=== PATIENT | male | born 1975 | race Caucasian/White ===

== ENCOUNTER 2017-02-10 17:04 | Emergency (ER) | payer OTHER ==
[~2017-02-10] VITALS: Ht 175.3 cm; Wt 110.0 kg
[~2017-02-10 17:04] MED LIST: ALL DAY10 MG PO; AMITRIPTYLIN50 MG PO; FLONASE NASAL50 MCG; GABAPENTIN100 MG PO; GLIPIZIDE5 MG PO; HUMULIN 70/30 SC; LIORESAL10 MG/TA1 PO; METFORMIN500 MG PO; NAPROSYN500 MG PO; SUMATRIPTAN25 MG PO; TOPIRAMATE ER100 MG PO; ZESTRIL40 MG PO
[2017-02-10] MEDS ORDERED: HUMULIN 70/30 SC (17:09)
[2017-02-10] MEDS ORDERED: TRAZODONE100 MG PO (17:11)
[2017-02-10] MEDS ORDERED: PERCOCET 5/325M1 TAB PO (17:52)
[2017-02-10 17:59] VITALS: BP 126/74
== END 2017-02-10 18:06 | disposition home or self-care (01) | DRG 93 ==
LOC: ED 17:04
DX: G89.29 Other chronic pain (principal); M54.5 Low back pain

== ENCOUNTER 2017-02-13 11:08 | Emergency (ER) | payer OTHER ==
[~2017-02-13] VITALS: Ht 175.3 cm; Wt 111.0 kg
[~2017-02-13 11:08] MED LIST changes: +PERCOCET 5/325M1 TAB PO; +TRAZODONE100 MG PO
[2017-02-13] MEDS ORDERED: TRAMADOL HCL50 MG PO (11:32)
[2017-02-13] MEDS ORDERED: AMOXICILLIN500 MG PO (13:16)
[2017-02-13 13:21] VITALS: BP 110/73
== END 2017-02-13 13:21 | disposition home or self-care (01) | DRG 605 ==
LOC: ED 11:08
PROC: 0HQFXZZ Repair Right Hand Skin, External Approach (ICD-10-PCS; principal; 2017-02-13)
PROC: 2W3JX1Z Immobilization of Right Finger using Splint (ICD-10-PCS; 2017-02-13)
PROC: 2W3JX1Z Immobilization of Right Finger using Splint (ICD-10-PCS; 2017-02-13)
DX: S61.210A Laceration without foreign body of right index finger without damage to nail, initial encounter (principal); S61.212A Laceration without foreign body of right middle finger without damage to nail, initial encounter; W31.2XXA Contact with powered woodworking and forming machines, initial encounter; Y93.89 Activity, other specified; Y92.007 Garden or yard of unspecified non-institutional (private) residence as the place of occurrence of the external cause

== ENCOUNTER 2017-02-23 09:12 | Emergency (ER) | payer OTHER ==
[~2017-02-23] VITALS: Ht 175.3 cm; Wt 111.0 kg
[~2017-02-23 09:12] MED LIST changes: +AMOXICILLIN500 MG PO; +TRAMADOL HCL50 MG PO
[2017-02-23 09:16] VITALS: BP 167/88
== END 2017-02-23 09:55 | disposition home or self-care (01) | DRG 950 ==
LOC: ED 09:12
DX: S61.210D Laceration without foreign body of right index finger without damage to nail, subsequent encounter (principal); S61.212D Laceration without foreign body of right middle finger without damage to nail, subsequent encounter

== ENCOUNTER 2018-12-23 20:13 | Inpatient (IN) | payer OTHER ==
[~2018-12-23] VITALS: Ht 175.3 cm; Wt 100.0 kg
[2018-12-23] MEDS ORDERED: CYMBALTA60 MG PO (20:59)
[2018-12-23] MEDS ORDERED: PROTONIX40 M2 PO (21:00)
[2018-12-23] MEDS ORDERED: ASPIRIN325 MG PO (21:01)
[2018-12-23 21:03] LABS: HEMATOCRIT 42.1 % (39.0-50.0); HEMOGLOBIN 14.3 g/dl (14.0-18.0); IMMATURE GRANULOCYTES 0.5 % (0.0-5.0); MEAN CELL VOLUME 91.1 fL CALC (80.0-100.0); NEUT# 10.38 thou/uL (1.82-7.42); RED BLOOD COUNT 4.62 mill/uL (4.70-6.10); RED CELL DISTRI WIDTH 12.9 % (11.5-15.5)
[2018-12-23] MEDS ORDERED: ZESTRIL40 MG PO (21:06)
[2018-12-23] MEDS ORDERED: DICLOFENAC50 MG PO (21:07)
[2018-12-23] MEDS ORDERED: ALLERGY10 M1 PO (21:08)
[2018-12-23] MEDS ORDERED: B121000 MCG PO (21:10)
[2018-12-23] MEDS ORDERED: ANTI-DIARRHE2 M1 PO (21:11)
[2018-12-23] MEDS ORDERED: BISACODYL5 M2 PO (21:12)
[2018-12-23] MEDS ORDERED: NAPROXEN500 MG PO (21:13)
[2018-12-23] MEDS ORDERED: INSULIN ISOPHANE SC (21:15)
[2018-12-23 21:19] LABS: ALBUMIN 5.3 g/dL (3.2-5.0); ALKALINE PHOSPHATASE 67 u/l (38-126); BILIRUBIN, TOTAL 0.7 mg/dL (0.0-1.4); BUN 66 mg/dL (9-20); CHLORIDE 101 mmol/l (95-108); SGOT/AST 29 u/l (17-59); SODIUM 139 mmol/l (137-146); TOTAL PROTEIN 8.2 g/dL (6.3-8.2)
[2018-12-23 21:45] LABS: ANION GAP 27 (6-22 (CALC)); BUN/CREATININE RATIO 13 (12-20 (CALC)); CARBON DIOXIDE 17 mmol/l (22-30); GFR 12 ML/MIN (>=60 (CALC)); GFR FOR AFR.AMER. 15 ML/MIN (>=60 (CALC)); POTASSIUM 5.5 mmol/l (3.5-5.1)
[2018-12-23 21:46] LABS: CREATININE 5.2 mg/dL (0.7-1.3); MYOGLOBIN 961 ng/mL (0 - 121)
[2018-12-23 21:57] LABS: URINE BILIRUBIN - DIPSTICK MODERATE (NEGATIVE); URINE BLOOD DIPSTICK NEGATIVE (NEGATIVE); URINE COLOR YELLOW; URINE GLUCOSE - DIPSTICK 100 mg/dL (NEGATIVE); URINE KETONE 15 mg/dL (NEGATIVE); URINE LEUK ESTERASE NEGATIVE (NEGATIVE); URINE NITRITE - DIPSTICK NEGATIVE (Negative); URINE PROTEIN - DIPSTICK 100 mg/dL (NEG-TRACE); URINE SPECIFIC GRAVITY >=1.030; URINE UROBILINOGEN - DIPSTICK 0.2 E.U./dL (0.2)
[2018-12-23 22:05] LABS: URINE SQUAMOUS EPITHELIAL CELL FEW EPI/hpf (0-FEW)
[2018-12-24 07:00] VITALS: BP 97/56
[2018-12-24 09:00] VITALS: BP 107/59
[2018-12-24 10:41] LABS: HEMOGLOBIN 12.5 g/dl (14.0-18.0); IMMATURE GRANULOCYTES 0.4 % (0.0-5.0); MEAN CELL VOLUME 92.3 fL CALC (80.0-100.0); MEAN CORPUSCULAR HGB 31.2 pG CALC (26.0-32.0); MEAN CORPUSCULAR HGB CONC 33.8 g/L CALC (32.0-36.0); NEUT# 5.13 thou/uL (1.82-7.42); RED BLOOD COUNT 4.01 mill/uL (4.70-6.10); RED CELL DISTRI WIDTH 12.9 % (11.5-15.5)
[2018-12-24 11:00] VITALS: BP 115/65
[2018-12-24 11:33] LABS: BILIRUBIN, TOTAL 0.6 mg/dL (0.0-1.4); POTASSIUM 5.1 mmol/l (3.5-5.1)
[2018-12-24 11:58] LABS: CREATININE 2.5 mg/dL (0.7-1.3); TOTAL PROTEIN 6.3 g/dL (6.3-8.2)
[2018-12-24 14:00] VITALS: BP 101/52
[2018-12-24 19:10] VITALS: BP 97/48
[2018-12-25] VITALS: BP 102/59
[2018-12-25 04:00] VITALS: BP 119/78
[2018-12-25 05:34] LABS: ALBUMIN 3.6 g/dL (3.2-5.0); BUN 32 mg/dL (9-20); CARBON DIOXIDE 20 mmol/l (22-30); CHLORIDE 109 mmol/l (95-108); GFR 60 ML/MIN (>=60 (CALC)); POTASSIUM 4.5 mmol/l (3.5-5.1); SODIUM 138 mmol/l (137-146)
[2018-12-25 05:40] LABS: CREATININE 1.3 mg/dL (0.7-1.3); GFR FOR AFR.AMER. > 60 ML/MIN (>=60 (CALC))
[2018-12-25 07:41] VITALS: BP 103/65
[2018-12-25 12:05] VITALS: BP 117/76
== END 2018-12-25 15:13 | disposition home or self-care (01) | DRG 683 ==
LOC: ED 20:13 → ED-I 21:52 → ED 22:09 → ED-I 22:10 → MS2 22:10
PROVIDERS: Emergency Medicine; Internal Medicine Nephrology; ADMIT Internal Medicine; ATTEND Internal Medicine
DX: N17.9 Acute kidney failure, unspecified (principal); R57.9 Shock, unspecified; E86.0 Dehydration; I10 Essential (primary) hypertension; E11.65 Type 2 diabetes mellitus with hyperglycemia; E11.21 Type 2 diabetes mellitus with diabetic nephropathy; I95.9 Hypotension, unspecified; E78.5 Hyperlipidemia, unspecified; N40.0 Benign prostatic hyperplasia without lower urinary tract symptoms; F43.10 Post-traumatic stress disorder, unspecified; G89.29 Other chronic pain; N28.1 Cyst of kidney, acquired; T46.4X5A Adverse effect of angiotensin-converting-enzyme inhibitors, initial encounter; X30.XXXA Exposure to excessive natural heat, initial encounter; Y93.89 Activity, other specified; Z87.820 Personal history of traumatic brain injury

== ENCOUNTER 2019-01-03 13:04 | Observation (INO) | payer OTHER ==
[~2019-01-03] VITALS: Ht 175.3 cm; Wt 104.5 kg
[~2019-01-03 13:04] MED LIST changes: +ALLERGY10 M1 PO; +ANTI-DIARRHE2 M1 PO; +ASPIRIN325 MG PO; +B121000 MCG PO; +BISACODYL5 M2 PO; +CYMBALTA60 MG PO; +DICLOFENAC50 MG PO; +INSULIN ISOPHANE SC; +NAPROXEN500 MG PO; +PROTONIX40 M2 PO
[2019-01-03 14:01] LABS: HEMATOCRIT 40.2 % (39.0-50.0); HEMOGLOBIN 13.5 g/dl (14.0-18.0); IMMATURE GRANULOCYTES 0.6 % (0.0-5.0); MEAN CELL VOLUME 92.6 fL CALC (80.0-100.0); MEAN CORPUSCULAR HGB 31.1 pG CALC (26.0-32.0); MEAN CORPUSCULAR HGB CONC 33.6 g/L CALC (32.0-36.0); NEUT# 8.18 thou/uL (1.82-7.42); RED BLOOD COUNT 4.34 mill/uL (4.70-6.10); RED CELL DISTRI WIDTH 13.2 % (11.5-15.5)
[2019-01-03 14:16] LABS: ALKALINE PHOSPHATASE 62 u/l (38-126); BILIRUBIN, TOTAL 0.7 mg/dL (0.0-1.4); BUN 30 mg/dL (9-20); CARBON DIOXIDE 20 mmol/l (22-30); CHLORIDE 100 mmol/l (95-108); SODIUM 137 mmol/l (137-146)
[2019-01-03 14:22] LABS: ALBUMIN 5.1 g/dL (3.2-5.0); ANION GAP 22 (6-22 (CALC)); BUN/CREATININE RATIO 12 (12-20 (CALC)); CREATININE 2.6 mg/dL (0.7-1.3); GFR 27 ML/MIN (>=60 (CALC)); GFR FOR AFR.AMER. 32 ML/MIN (>=60 (CALC)); POTASSIUM 5.3 mmol/l (3.5-5.1); SGOT/AST 41 u/l (17-59)
[2019-01-03 14:28] LABS: MYOGLOBIN 236 ng/mL (0 - 121)
[2019-01-03] MEDS ORDERED: LISINOPRIL10 MG PO (18:57)
[2019-01-03] MEDS ORDERED: TYLENOL # 31 TA1 PO (19:05)
[2019-01-03 19:31] LABS: URINE BLOOD DIPSTICK NEGATIVE (NEGATIVE); URINE COLOR YELLOW; URINE GLUCOSE - DIPSTICK NEGATIVE (NEGATIVE); URINE KETONE 15 mg/dL (NEGATIVE); URINE LEUK ESTERASE NEGATIVE (NEGATIVE); URINE NITRITE - DIPSTICK NEGATIVE (Negative); URINE PROTEIN - DIPSTICK 30 mg/dL (NEG-TRACE); URINE SPECIFIC GRAVITY 1.025; URINE UROBILINOGEN - DIPSTICK 0.2 E.U./dL (0.2)
[2019-01-03 19:32] LABS: URINE BILIRUBIN - DIPSTICK NEGATIVE (NEGATIVE)
[2019-01-03 19:39] LABS: URINE CALCIUM OXALATE CRYSTALS FEW lpf; URINE MUCUS FEW hpf (NONE-FEW); URINE RBC 0-2 RBC/hpf (0-5)
[2019-01-03 19:50] LABS: BARBITURATES NEGATIVE (NEGATIVE); COCAINE NEGATIVE (NEGATIVE); METHADONE NEGATIVE (NEGATIVE); OXCYCODONE NEGATIVE (NEGATIVE); TETRAHYDROCANNABIONOL NEGATIVE (NEGATIVE); TRICYLIC ANTIDEPRESSANTS NEGATIVE (NEGATIVE)
[2019-01-03 21:55] VITALS: BP 112/57
[2019-01-04 01:25] VITALS: BP 98/56
[2019-01-04 04:30] VITALS: BP 117/42
[2019-01-04 05:04] LABS: HEMATOCRIT 35.3 % (39.0-50.0); HEMOGLOBIN 11.8 g/dl (14.0-18.0); IMMATURE GRANULOCYTES 0.4 % (0.0-5.0); MEAN CELL VOLUME 92.9 fL CALC (80.0-100.0); MEAN CORPUSCULAR HGB 31.1 pG CALC (26.0-32.0); MEAN CORPUSCULAR HGB CONC 33.4 g/L CALC (32.0-36.0); NEUT# 4.04 thou/uL (1.82-7.42); RED BLOOD COUNT 3.8 mill/uL (4.70-6.10); RED CELL DISTRI WIDTH 13.2 % (11.5-15.5)
[2019-01-04 05:16] LABS: BILIRUBIN, TOTAL 0.6 mg/dL (0.0-1.4); CREATININE 2.7 mg/dL (0.7-1.3); MAGNESIUM 1.6 mg/dL (1.6-2.3); POTASSIUM 4.7 mmol/l (3.5-5.1)
[2019-01-04 05:17] LABS: TOTAL PROTEIN 5.9 g/dL (6.3-8.2)
[2019-01-04 05:18] LABS: ALBUMIN 3.7 g/dL (3.2-5.0)
[2019-01-04 08:07] VITALS: BP 101/50
[2019-01-04 10:25] VITALS: BP 109/62
[2019-01-04 16:12] VITALS: BP 108/62
[2019-01-04 18:55] VITALS: BP 118/57
[2019-01-05 00:05] VITALS: BP 120/62
[2019-01-05 03:26] VITALS: BP 97/56
[2019-01-05 05:43] LABS: HEMATOCRIT 35.3 % (39.0-50.0); HEMOGLOBIN 11.8 g/dl (14.0-18.0); IMMATURE GRANULOCYTES 0.2 % (0.0-5.0); MEAN CELL VOLUME 92.2 fL CALC (80.0-100.0); MEAN CORPUSCULAR HGB 30.8 pG CALC (26.0-32.0); MEAN CORPUSCULAR HGB CONC 33.4 g/L CALC (32.0-36.0); NEUT# 4.48 thou/uL (1.82-7.42); RED BLOOD COUNT 3.83 mill/uL (4.70-6.10); RED CELL DISTRI WIDTH 13.1 % (11.5-15.5)
[2019-01-05 06:05] LABS: ALBUMIN 3.8 g/dL (3.2-5.0); ALKALINE PHOSPHATASE 51 u/l (38-126); AMYLASE 42 u/l (30-110); ANION GAP 12 (6-22 (CALC)); BILIRUBIN, TOTAL 0.5 mg/dL (0.0-1.4); BUN 21 mg/dL (9-20); CHLORIDE 106 mmol/l (95-108); LIPASE 65 u/l (23-300); MAGNESIUM 1.7 mg/dL (1.6-2.3); POTASSIUM 5.1 mmol/l (3.5-5.1); SGOT/AST 20 u/l (17-59); SODIUM 138 mmol/l (137-146); TOTAL PROTEIN 6.1 g/dL (6.3-8.2)
[2019-01-05 06:12] LABS: BUN/CREATININE RATIO 16 (12-20 (CALC)); CARBON DIOXIDE 25 mmol/l (22-30); CREATININE 1.3 mg/dL (0.7-1.3); GFR 60 ML/MIN (>=60 (CALC)); GFR FOR AFR.AMER. > 60 ML/MIN (>=60 (CALC))
[2019-01-05 08:03] VITALS: BP 123/64
[2019-01-05 11:19] VITALS: BP 110/67
[2019-01-05] MEDS ORDERED: KEFLEX500 MG PO (12:00)
== END 2019-01-05 13:54 | disposition home or self-care (01) | DRG 683 ==
LOC: ED 13:04 → ED-I 20:32 → ED 21:17 → MS2 21:18
PROVIDERS: Family Medicine; ADMIT Internal Medicine Nephrology; ATTEND Internal Medicine Nephrology
DX: N17.9 Acute kidney failure, unspecified (principal); E87.2 Acidosis; E86.0 Dehydration; E87.5 Hyperkalemia; T46.4X5A Adverse effect of angiotensin-converting-enzyme inhibitors, initial encounter; I12.9 Hypertensive chronic kidney disease with stage 1 through stage 4 chronic kidney disease, or unspecified chronic kidney disease; E11.22 Type 2 diabetes mellitus with diabetic chronic kidney disease; N18.3 Chronic kidney disease, stage 3 (moderate); E11.21 Type 2 diabetes mellitus with diabetic nephropathy; E11.40 Type 2 diabetes mellitus with diabetic neuropathy, unspecified; S80.212A Abrasion, left knee, initial encounter; T14.8XXA Other injury of unspecified body region, initial encounter; F43.10 Post-traumatic stress disorder, unspecified; G89.29 Other chronic pain; W11.XXXA Fall on and from ladder, initial encounter; Z87.820 Personal history of traumatic brain injury; Z79.4 Long term (current) use of insulin; Z72.89 Other problems related to lifestyle

== ENCOUNTER 2020-03-29 08:03 | Emergency (ER) | payer OTHER ==
[~2020-03-29] VITALS: Ht 175.3 cm; Wt 95.0 kg
[~2020-03-29 08:03] MED LIST changes: +KEFLEX500 MG PO; +LISINOPRIL10 MG PO; +TYLENOL # 31 TA1 PO
[2020-03-29 09:32] LABS: URINE BILIRUBIN - DIPSTICK NEGATIVE (NEGATIVE); URINE BLOOD DIPSTICK NEGATIVE (NEGATIVE); URINE COLOR YELLOW; URINE GLUCOSE - DIPSTICK >=1000 mg/dL (NEGATIVE); URINE KETONE NEGATIVE (NEGATIVE); URINE NITRITE - DIPSTICK NEGATIVE (Negative); URINE PH 7.5 (4.5-8.0); URINE PROTEIN - DIPSTICK NEGATIVE (NEG-TRACE); URINE SPECIFIC GRAVITY 1.015; URINE UROBILINOGEN - DIPSTICK 0.2 E.U./dL (0.2)
[2020-03-29 09:37] LABS: URINE LEUK ESTERASE NEGATIVE (NEGATIVE)
[2020-03-29 10:05] VITALS: BP 140/84
== END 2020-03-29 10:05 | disposition left against medical advice (07) | DRG 552 ==
LOC: ED 08:03
DX: M54.5 Low back pain (principal); G89.29 Other chronic pain; E11.65 Type 2 diabetes mellitus with hyperglycemia; I10 Essential (primary) hypertension; Z98.1 Arthrodesis status; Z79.4 Long term (current) use of insulin; Z91.19 Patient's noncompliance with other medical treatment and regimen

== ENCOUNTER 2020-09-09 09:42 | Emergency (ER) | payer OTHER | END 2020-09-09 10:18 | disposition left against medical advice (07) | DRG 951 | LOC: ED 09:42 → LWOBS 10:17 | DX: Z53.21 Procedure and treatment not carried out due to patient leaving prior to being seen by health care provider (principal) ==

== ENCOUNTER → 2021-03-27 | Outpatient (REF) | payer OTHER | END | disposition home or self-care (01) | DRG 204 | LOC: DI 15:35 | PROVIDERS: ATTEND Internal Medicine | DX: R05 Cough (principal); U07.1 COVID-19 ==

== ENCOUNTER 2021-03-30 07:48 | Outpatient (REF) | payer OTHER | END 2021-03-30 12:16 | disposition home or self-care (01) | DRG 179 | LOC: INF 07:48 | PROVIDERS: ATTEND Internal Medicine | DX: U07.1 COVID-19 (principal) ==

== ENCOUNTER 2021-04-10 10:25 | Emergency (ER) | payer OTHER ==
[~2021-04-10] VITALS: Ht 175.3 cm; Wt 87.0 kg
[2021-04-10] MEDS ORDERED: BACTRIM DS1 TAB PO (11:26)
[2021-04-10] MEDS ORDERED: OMNI-PAC300 MG PO (11:26)
[2021-04-10 11:31] VITALS: BP 137/82
== END 2021-04-10 11:36 | disposition home or self-care (01) | DRG 603 ==
LOC: ED 10:25
PROC: 0H98XZZ Drainage of Buttock Skin, External Approach (ICD-10-PCS; principal; 2021-04-10)
DX: L05.01 Pilonidal cyst with abscess (principal); C85.90 Non-Hodgkin lymphoma, unspecified, unspecified site; I10 Essential (primary) hypertension; E11.9 Type 2 diabetes mellitus without complications; K21.9 Gastro-esophageal reflux disease without esophagitis; Z87.820 Personal history of traumatic brain injury

== ENCOUNTER 2021-07-10 10:13 | Emergency (ER) | payer OTHER ==
[~2021-07-10] VITALS: Ht 175.3 cm; Wt 100.0 kg
[~2021-07-10 10:13] MED LIST changes: +BACTRIM DS1 TAB PO; +OMNI-PAC300 MG PO
[2021-07-10 11:53] VITALS: BP 158/88
== END 2021-07-10 11:53 | disposition home or self-care (01) | DRG 605 ==
LOC: ED 10:13
PROC: 0H9QXZZ Drainage of Finger Nail, External Approach (ICD-10-PCS; principal; 2021-07-10)
DX: S60.141A Contusion of right ring finger with damage to nail, initial encounter (principal); I10 Essential (primary) hypertension; E11.9 Type 2 diabetes mellitus without complications; K21.9 Gastro-esophageal reflux disease without esophagitis; W20.8XXA Other cause of strike by thrown, projected or falling object, initial encounter; Y92.009 Unspecified place in unspecified non-institutional (private) residence as the place of occurrence of the external cause; Z87.820 Personal history of traumatic brain injury

== ENCOUNTER 2021-12-28 13:51 | Emergency (ER) | payer OTHER ==
[~2021-12-28] VITALS: Ht 175.3 cm; Wt 97.7 kg
[2021-12-28] VITALS (28 sets, daily range): BP systolic 121–156; BP diastolic 70–93
[2021-12-28 14:14] LABS: HEMATOCRIT 46.1 % (39.0-50.0); HEMOGLOBIN 16.4 g/dl (14.0-18.0); IMMATURE GRANULOCYTES 0.1 % (0.0-5.0); MEAN CELL VOLUME 87.8 fL CALC (80.0-100.0); MEAN CORPUSCULAR HGB 31.2 pG CALC (26.0-32.0); MEAN CORPUSCULAR HGB CONC 35.6 g/dL CAL (32.0-36.0); NEUT# 6.53 thou/uL (1.82-7.42); RED BLOOD COUNT 5.25 mill/uL (4.70-6.10); RED CELL DISTRI WIDTH 12.9 % (11.5-15.5)
[2021-12-28 14:31] LABS: ALBUMIN 4.7 g/dL (3.2-5.0); ALKALINE PHOSPHATASE 79 u/l (38-126); ANION GAP 16 (6-22 (CALC)); BUN 20 mg/dL (9-20); BUN/CREATININE RATIO 17 (12-20 (CALC)); CARBON DIOXIDE 24 mmol/l (22-30); CHLORIDE 101 mmol/l (95-108); CREATININE 1.1 mg/dL (0.7-1.3); GFR FOR AFR.AMER. > 60 ML/MIN (>=60 (CALC)); GFR OTHER RACES > 60 ML/MIN (>=60 (CALC)); POTASSIUM 3.7 mmol/l (3.5-5.1); SGOT/AST 27 u/l (17-59); SODIUM 137 mmol/l (137-146); TOTAL PROTEIN 7.7 g/dL (6.3-8.2)
[2021-12-28 14:35] LABS: BILIRUBIN, TOTAL 1.2 mg/dL (0.0-1.4)
[2021-12-28 16:47] LABS: PROTHROMBIN TIME 10.4 SECONDS (9.0-12.5)
[2021-12-28 16:52] LABS: URINE BILIRUBIN - DIPSTICK NEGATIVE (NEGATIVE); URINE BLOOD DIPSTICK NEGATIVE (NEGATIVE); URINE COLOR YELLOW; URINE GLUCOSE - DIPSTICK >=1000 mg/dL (NEGATIVE); URINE KETONE NEGATIVE (NEGATIVE); URINE LEUK ESTERASE NEGATIVE (NEGATIVE); URINE PROTEIN - DIPSTICK NEGATIVE (NEG-TRACE); URINE SPECIFIC GRAVITY 1.015; URINE UROBILINOGEN - DIPSTICK 0.2 E.U./dL (0.2)
[2021-12-28 16:56] LABS: URINE NITRITE - DIPSTICK NEGATIVE (Negative)
[2021-12-28] MEDS ORDERED: ROSUVASTATIN CA20 MG (17:51)
[2021-12-28] MEDS ORDERED: LOSARTAN POTASS50 MG PO (17:51)
[2021-12-28] MEDS ORDERED: HYDROCHLOROT25 MG PO (17:51)
[2021-12-28] MEDS ORDERED: BACLOFEN10 MG PO (17:52)
[2021-12-28] MEDS ORDERED: OXYCOD PO (17:52)
[2021-12-28] MEDS ORDERED: APAP PO (17:52)
[2021-12-28] MEDS ORDERED: SILDENAFIL CIT100 MG (17:53)
[2021-12-28] MEDS ORDERED: GABAPENTIN300 M2 (17:53)
[2021-12-28] MEDS ORDERED: NAPROXEN375 MG PO (17:56)
[2021-12-28] MEDS ORDERED: REPAGLINIDE2 MG (17:56)
[2021-12-28] MEDS ORDERED: TRAZODONE100 MG PO (17:56)
[2021-12-28] MEDS ORDERED: INSULIN LI100 UNIT/1 (17:57)
[2021-12-28] MEDS ORDERED: LANTUS SOL100 UNIT/M (17:57)
[2021-12-28] MEDS ORDERED: PANTOPRAZOLE SO40 M1 PO (17:58)
[2021-12-28] MEDS ORDERED: PRAMIPEXOLE0.125 M1 PO (17:58)
[2021-12-28] MEDS ORDERED: TOPIRAMATE100 MG PO (17:59)
== END 2021-12-28 21:27 | disposition short-term general hospital (02) | DRG 313 ==
LOC: ED 13:51 → ED-I 17:10 → ED 21:27
PROVIDERS: Family Medicine
DX: R07.9 Chest pain, unspecified (principal); I63.9 Cerebral infarction, unspecified; U07.1 COVID-19; R20.0 Anesthesia of skin; R41.0 Disorientation, unspecified; R29.701 NIHSS score 1; I10 Essential (primary) hypertension; E11.9 Type 2 diabetes mellitus without complications; Z87.820 Personal history of traumatic brain injury; K21.9 Gastro-esophageal reflux disease without esophagitis; E78.5 Hyperlipidemia, unspecified
CPT/HCPCS: Q9967

== ENCOUNTER 2022-03-09 09:08 | Emergency (ER) | payer OTHER ==
[~2022-03-09] VITALS: Ht 175.3 cm; Wt 95.2 kg
[~2022-03-09 09:08] MED LIST changes: +APAP PO; +BACLOFEN10 MG PO; +GABAPENTIN300 M2; +HYDROCHLOROT25 MG PO; +INSULIN LI100 UNIT/1; +LANTUS SOL100 UNIT/M; +LOSARTAN POTASS50 MG PO; +NAPROXEN375 MG PO; +OXYCOD PO; +PANTOPRAZOLE SO40 M1 PO; +PRAMIPEXOLE0.125 M1 PO; +REPAGLINIDE2 MG; +ROSUVASTATIN CA20 MG; +SILDENAFIL CIT100 MG; +TOPIRAMATE100 MG PO
[2022-03-09 09:20] VITALS: BP 147/92
[2022-03-09 09:30] VITALS: BP 133/90
[2022-03-09 10:00] VITALS: BP 135/86
[2022-03-09 10:30] VITALS: BP 127/81
[2022-03-09 11:00] VITALS: BP 129/84
[2022-03-09 12:27] VITALS: BP 129/84
== END 2022-03-09 13:14 | disposition home or self-care (01) | DRG 552 ==
LOC: ED 09:08
DX: M62.830 Muscle spasm of back (principal); M54.9 Dorsalgia, unspecified; M54.2 Cervicalgia; V43.52XA Car driver injured in collision with other type car in traffic accident, initial encounter

== ENCOUNTER 2022-12-21 23:24 | Emergency (ER) | payer OTHER ==
[~2022-12-21] VITALS: Ht 175.3 cm; Wt 95.5 kg
[2022-12-21 23:31] VITALS: BP 142/85
[2022-12-21 23:45] VITALS: BP 135/82
[2022-12-22] VITALS (23 sets, daily range): BP systolic 102–131; BP diastolic 54–79
[2022-12-22 00:06] LABS: BASO% 0.2 % (0-3); EOS% 1.1 % (0-8); HEMATOCRIT 42.1 % (39.0-50.0); HEMOGLOBIN 14.1 g/dl (14.0-18.0); IMMATURE GRANULOCYTES 0.2 % (0.0-5.0); LYMPH% 16.4 % (15-41); MEAN CELL VOLUME 91.1 fL CALC (80.0-100.0); MEAN CORPUSCULAR HGB 30.5 pG CALC (26.0-32.0); MEAN CORPUSCULAR HGB CONC 33.5 g/dL CAL (32.0-36.0); MONO% 6.6 % (2-13); NEUT# 4.6 thou/uL (1.82-7.42); NEUT% 75.5 % (42-76); RED BLOOD COUNT 4.62 mill/uL (4.70-6.10); RED CELL DISTRI WIDTH 12.9 % (11.5-15.5)
[2022-12-22 00:17] LABS: ALBUMIN 4.2 g/dL (3.2-5.0); ANION GAP 11 (6-22 (CALC)); BILIRUBIN, TOTAL 0.6 mg/dL (0.2-1.3); BUN 23 mg/dL (9-20); BUN/CREATININE RATIO 29 (12-20 (CALC)); CARBON DIOXIDE 27 mmol/l (22-30); CHLORIDE 105 mmol/l (95-108); CREATININE 0.8 mg/dL (0.7-1.3); GFR FOR AFR.AMER. > 60 ML/MIN (>=60 (CALC)); GFR OTHER RACES > 60 ML/MIN (>=60 (CALC)); POTASSIUM 3.9 mmol/l (3.5-5.1); SGOT/AST 33 u/l (17-59); SODIUM 139 mmol/l (137-146); TOTAL PROTEIN 6.4 g/dL (6.3-8.2)
[2022-12-22 00:19] LABS: ETHYL ALCOHOL 0 mg/dl (0-30)
[2022-12-22 00:23] LABS: ALKALINE PHOSPHATASE 46 u/l (38-126)
== END 2022-12-22 06:31 | disposition home or self-care (01) | DRG 897 ==
LOC: ED 23:24
PROVIDERS: Emergency Medicine
DX: F12.959 Cannabis use, unspecified with psychotic disorder, unspecified (principal); R07.9 Chest pain, unspecified; I10 Essential (primary) hypertension; E11.9 Type 2 diabetes mellitus without complications; G89.29 Other chronic pain; E78.5 Hyperlipidemia, unspecified; K21.9 Gastro-esophageal reflux disease without esophagitis; Z87.820 Personal history of traumatic brain injury; Z79.4 Long term (current) use of insulin

== ENCOUNTER 2024-03-11 14:18 | Emergency (ER) | payer OTHER ==
[~2024-03-11] VITALS: Ht 175.3 cm; Wt 102.2 kg
[2024-03-11] VITALS (10 sets, daily range): BP systolic 118–141; BP diastolic 75–83
[~2024-03-11 14:18] MED LIST changes: +CRESTOR20 MG PO; +LEVOCETIRIZINE D5 MG PO; +MEDDOSEPAK PO; +PROAIR HFA IN; +ROBITUSSIN AC10 ML PO
[2024-03-11] MEDS ORDERED: ASPIRIN 81 MG/TAB PO PRN (14:25)
[2024-03-11] MEDS ORDERED: MORPHINE SULFATE 4 MG/ML VIAL IV ONE (14:35)
[2024-03-11 14:48] LABS: BASO% 0.4 % (0-3); EOS% 0.7 % (0-8); IMMATURE GRANULOCYTES 0.1 % (0.0-5.0); LYMPH% 14.6 % (15-41); MEAN CELL VOLUME 85.5 fL CALC (80.0-100.0); MEAN CORPUSCULAR HGB 30.2 pG CALC (26.0-32.0); MEAN CORPUSCULAR HGB CONC 35.4 g/dL CAL (32.0-36.0); MONO% 6.7 % (2-13); NEUT# 6.44 thou/uL (1.82-7.42); NEUT% 77.5 % (42-76); RED BLOOD COUNT 5.79 mill/uL (4.70-6.10); RED CELL DISTRI WIDTH 12.5 % (11.5-15.5)
[2024-03-11 14:50] LABS: HEMATOCRIT 49.5 % (39.0-50.0); HEMOGLOBIN 17.5 g/dl (14.0-18.0)
[2024-03-11 15:00] LABS: ALBUMIN 4.7 g/dL (3.2-5.0); ALKALINE PHOSPHATASE 64 u/l (38-126); BUN 29 mg/dL (9-20); BUN/CREATININE RATIO 24 (12-20 (CALC)); CARBON DIOXIDE 27 mmol/l (22-30); CHLORIDE 95 mmol/l (95-108); CREATININE 1.2 mg/dL (0.7-1.3); ESTIMATED GFR 74 ML/MIN (>=90 (CALC)); SGOT/AST 33 u/l (17-59); SODIUM 132 mmol/l (137-146); TOTAL PROTEIN 7.5 g/dL (6.3-8.2)
[2024-03-11 15:02] LABS: ANION GAP 15 (6-22 (CALC)); BILIRUBIN, TOTAL 1.9 mg/dL (0.2-1.3); POTASSIUM 4.8 mmol/l (3.5-5.1)
[2024-03-11] MEDS ORDERED: INSULIN REGULAR (HUMAN) 100 UNIT/ML INJ IV ONE (15:20)
== END 2024-03-11 18:00 | disposition home or self-care (01) | DRG 313 ==
LOC: ED 14:18
PROVIDERS: Nurse Practitioner Family
DX: R07.9 Chest pain, unspecified (principal); C85.90 Non-Hodgkin lymphoma, unspecified, unspecified site; I12.9 Hypertensive chronic kidney disease with stage 1 through stage 4 chronic kidney disease, or unspecified chronic kidney disease; E11.22 Type 2 diabetes mellitus with diabetic chronic kidney disease; N18.9 Chronic kidney disease, unspecified; E78.5 Hyperlipidemia, unspecified; Z87.820 Personal history of traumatic brain injury; Z79.4 Long term (current) use of insulin

== ENCOUNTER 2024-07-16 13:58 | Emergency (ER) | payer OTHER ==
[~2024-07-16] VITALS: Ht 175.3 cm; Wt 100.0 kg
[2024-07-16] VITALS (12 sets, daily range): BP systolic 116–145; BP diastolic 75–85
[2024-07-16] MEDS ORDERED: ASPIRIN 81 MG/TAB PO ONE (14:05)
[2024-07-16] MEDS ORDERED: SODIUM CHLORIDE 0.9% 1,000 ML IV ONE ×2 (14:15→15:35)
[2024-07-16 14:33] LABS: BASO% 0.2 % (0-3); EOS% 0.9 % (0-8); HEMATOCRIT 46.4 % (39.0-50.0); HEMOGLOBIN 16.1 g/dl (14.0-18.0); IMMATURE GRANULOCYTES 0.1 % (0.0-5.0); LYMPH% 14.3 % (15-41); MEAN CELL VOLUME 87.4 fL CALC (80.0-100.0); MEAN CORPUSCULAR HGB 30.3 pG CALC (26.0-32.0); MEAN CORPUSCULAR HGB CONC 34.7 g/dL CAL (32.0-36.0); NEUT# 6.67 thou/uL (1.82-7.42); NEUT% 78.5 % (42-76); RED BLOOD COUNT 5.31 mill/uL (4.70-6.10); RED CELL DISTRI WIDTH 12.3 % (11.5-15.5)
[2024-07-16 14:59] LABS: ALBUMIN 4.4 g/dL (3.2-5.0); ALKALINE PHOSPHATASE 65 u/l (38-126); ANION GAP 15 (6-22 (CALC)); BILIRUBIN, TOTAL 1.3 mg/dL (0.2-1.3); CARBON DIOXIDE 32 mmol/l (22-30); CHLORIDE 90 mmol/l (95-108); POTASSIUM 4.2 mmol/l (3.5-5.1); SGOT/AST 31 u/l (17-59); SODIUM 133 mmol/l (137-146); TOTAL PROTEIN 6.9 g/dL (6.3-8.2)
[2024-07-16 15:04] LABS: BUN 25 mg/dL (9-20); BUN/CREATININE RATIO 16 (12-20 (CALC)); CREATININE 1.6 mg/dL (0.7-1.3); ESTIMATED GFR 52 ML/MIN (>=90 (CALC))
[2024-07-16 16:40] LABS: URINE BILIRUBIN - DIPSTICK Negative (NEGATIVE); URINE BLOOD DIPSTICK Negative (NEGATIVE); URINE GLUCOSE - DIPSTICK >=1000 mg/dL (NEGATIVE); URINE KETONE Negative (NEGATIVE); URINE LEUK ESTERASE Negative (NEGATIVE); URINE NITRITE - DIPSTICK Negative (Negative); URINE PROTEIN - DIPSTICK Negative (NEG-TRACE); URINE UROBILINOGEN - DIPSTICK 0.2 E.U./dL (0.2)
[2024-07-16 16:41] LABS: URINE COLOR Straw
[2024-07-16 17:36] LABS: ANION GAP 11 (6-22 (CALC)); BUN 24 mg/dL (9-20); BUN/CREATININE RATIO 19 (12-20 (CALC)); CARBON DIOXIDE 31 mmol/l (22-30); CHLORIDE 97 mmol/l (95-108); CREATININE 1.2 mg/dL (0.7-1.3); ESTIMATED GFR 74 ML/MIN (>=90 (CALC)); POTASSIUM 3.8 mmol/l (3.5-5.1); SODIUM 135 mmol/l (137-146)
== END 2024-07-16 18:11 | disposition home or self-care (01) | DRG 313 ==
LOC: ED 13:58
PROVIDERS: Family Medicine
DX: R07.9 Chest pain, unspecified (principal); E11.9 Type 2 diabetes mellitus without complications; I10 Essential (primary) hypertension; K21.9 Gastro-esophageal reflux disease without esophagitis; Z87.820 Personal history of traumatic brain injury; Z79.82 Long term (current) use of aspirin; Z79.4 Long term (current) use of insulin